=== PATIENT | female | born 1995 | race Asian ===

== ENCOUNTER 2023-03-27 01:44 | Emergency (ER) | payer MEDICAID ==
[~2023-03-27] VITALS: Ht 167.6 cm; Wt 69.4 kg
[2023-03-27] MEDS ORDERED: IV NS 0.9% 1,000 ML BAG IV ONE (02:00)
[2023-03-27] MEDS ORDERED: methylPREDNISolone SOD SUCC 125 MG/2ML VIAL IV ONE (02:00)
[2023-03-27] MEDS ORDERED: FAMOTIDINE/PF INJ 20 MG/2 ML VIAL IV ONE ×2 (02:00→02:04)
[2023-03-27] MEDS ORDERED: methylPREDNISolone SOD SUCC 125 MG/2ML VIAL ONE (02:04)
[2023-03-27] MEDS ORDERED: diphenhydrAMINE HCL 50 MG/ML VIAL ONE (03:09)
[2023-03-27] MEDS ORDERED: diphenhydrAMINE HCL 50 MG/ML VIAL IV ONE (03:30)
[2023-03-27] MEDS ORDERED: PRED50TA PO (04:12)
[2023-03-27] MEDS ORDERED: EPIN0.3P3 IM (04:12)
[2023-03-27 05:37] VITALS: BP 132/77; TEMP 98; O2SAT 97
== END 2023-03-27 05:37 | disposition home or self-care (01) ==
LOC: ER 01:48
DX: L29.9 Pruritus, unspecified (principal); R22.0 Localized swelling, mass and lump, head; T78.09XA Anaphylactic reaction due to other food products, initial encounter; Z79.899 Other long term (current) drug therapy
CPT/HCPCS: 99284; 96374; 96375; 96361; 93005; J1200; J3490; J2930; J7030